=== PATIENT | female | born 1990 | race Two or more races ===

== ENCOUNTER 2020-07-15 12:41 | Emergency (ER) | payer OTHER ==
[~2020-07-15] VITALS: Ht 160 cm; Wt 71.7 kg
[2020-07-15 12:55] VITALS: BP 111/70
--- NOTE | 2020-07-15 12:55 | NUR ---
PT BIBSELF C/O R FOOT PAIN/SWELLING S/P "ROLLING IT" WHILE GOING UP STAIRS. VS CHECKED. STABLE SEEN BY
--- NOTE | 2020-07-15 13:18 | NUR ---
XRAY BY BEDSIDE
== END 2020-07-15 13:58 | disposition home or self-care (01) ==
LOC: ER 12:46
DX: O9A.219 Injury, poisoning and certain other consequences of external causes complicating pregnancy, unspecified trimester (principal); S92.351A Displaced fracture of fifth metatarsal bone, right foot, initial encounter for closed fracture; Z3A.00 Weeks of gestation of pregnancy not specified; X50.1XXA Overexertion from prolonged static or awkward postures, initial encounter; Y93.02 Activity, running; Y92.89 Other specified places as the place of occurrence of the external cause; Y99.8 Other external cause status
CPT/HCPCS: 73630-TC